=== PATIENT | female | born 1975 | race Two or more races ===

== ENCOUNTER 2019-09-02 00:22 | Emergency (ER) | payer MEDICAID ==
[~2019-09-02] VITALS: Ht 167.6 cm; Wt 65.8 kg
[2019-09-02] MEDS ORDERED: MORPHINE SULFATE 4 MG/ML SYR/VIAL IV ONE (00:45)
[2019-09-02] MEDS ORDERED: ONDANSETRON HCL 4 MG/2 ML VIAL IV ONE (00:45)
[2019-09-02] MEDS ORDERED: HYDROmorphone HCL 2 MG/ML VL IV ONE (01:30)
[2019-09-02] MEDS ORDERED: LORazepam 2MG/ML-1ML VIAL IV ONE (02:15)
[2019-09-02 04:15] VITALS: BP 95/64
== END 2019-09-02 05:22 | disposition home or self-care (01) ==
LOC: EDBD 00:22 → ER 00:27
DX: R51 Headache (principal); F41.9 Anxiety disorder, unspecified; R11.0 Nausea; H53.8 Other visual disturbances
CPT/HCPCS: 70450; 96374; 96375; 99284; J1170; J2060; J2270; J2405

== ENCOUNTER 2021-07-04 06:26 | Emergency (ER) | payer MEDICAID ==
[~2021-07-04] VITALS: Ht 170.2 cm; Wt 79.4 kg
[2021-07-04 08:13] VITALS: BP 148/88
[2021-07-04] MEDS ORDERED: LIDO2SOL23 PO (08:20)
[2021-07-04] MEDS ORDERED: AZIT500T PO (08:20)
== END 2021-07-04 08:26 | disposition home or self-care (01) ==
LOC: ER 06:26
DX: J02.9 Acute pharyngitis, unspecified (principal); Z20.822 Contact with and (suspected) exposure to COVID-19
CPT/HCPCS: 36415; 71045; 87426

== ENCOUNTER 2023-05-16 04:52 | Emergency (ER) | payer MEDICAID ==
[~2023-05-16] VITALS: Ht 170.2 cm; Wt 78.2 kg
[~2023-05-16 04:52] MED LIST: AZIT500T PO; LIDO2SOL26 PO
[2023-05-16 05:04] VITALS: BP 148/86; PULSE 114; RESP 16; O2SAT 95
== END 2023-05-16 05:35 | disposition left against medical advice (07) ==
LOC: ER 04:52
DX: M79.601 Pain in right arm (principal); R20.2 Paresthesia of skin; Z53.21 Procedure and treatment not carried out due to patient leaving prior to being seen by health care provider

== ENCOUNTER 2024-01-11 18:06 | Emergency (ER) | payer MEDICAID ==
[~2024-01-11] VITALS: Ht 170.2 cm; Wt 79.5 kg
[2024-01-11 18:30] VITALS: BP 154/110; PULSE 123; RESP 18; O2SAT 97
[2024-01-11] MEDS ORDERED: SODIUM CHLORIDE 0.9% 1,000 ML IV ONE (19:00)
== END 2024-01-11 20:18 | disposition left against medical advice (07) ==
LOC: ER 18:06 → EDBD 18:06 → ER 20:08
DX: F10.129 Alcohol abuse with intoxication, unspecified (principal); I10 Essential (primary) hypertension; Z79.899 Other long term (current) drug therapy; Y90.0 Blood alcohol level of less than 20 mg/100 ml
CPT/HCPCS: 36415; 80320

== ENCOUNTER 2024-05-24 14:11 | Emergency (ER) | payer MEDICAID ==
[~2024-05-24] VITALS: Ht 170.2 cm; Wt 79.9 kg
--- NOTE | 2024-05-24 14:37 | ED.PDOC ---
Back pain HPI HPI Comments 49 y/o female pt presents to the clinic for posterior head pain. Pt reports that she woke up yesterday with pain. Pt states that the pain started with left lateral neck pain. Pt reports that he pain is now on both sides of the neck and radiates up the back of the head. Pt reports that pain has increased. Pt reports that she has increased pain when she rotates the head to the left and with extension and flexion of the neck. Pt denies any alleviating factors. Pt denies any injury or trauma. Pt denies any back pain. Pt denies any new numbness or tingling. Pt has a history of carpal tunnel. Pt denies any chest pain. Pt reports that she took aleve around 12pm today but denies any decrease in pain. Pt reports that she also tried heat which has not relieved the pain. Pt denies any medical history. Chief Complaint: Neck Pain Time Seen by MD: 14:36 Primary Care Provider: NONE Allergies: Coded Allergies: NO KNOWN ALLERGIES (Unverified , 09/02/19) Home Meds Active Scripts Cyclobenzaprine Hcl (Cyclobenzaprine Hcl) 10 Mg Tab, 10 MG PO Q8HPRN PRN for 10 Days, #30 TAB 0 Refills Prov:GENARO ASTUDILLO [facility] 05/24/24 Ibuprofen Micronized (Ibuprofen) 600 Mg Tab, 600 MG PO Q8HP PRN for 10 Days, #30 TAB 0 Refills Prov:GENARO ASTUDILLO [facility] 05/24/24 Prednisone (Prednisone) 20 Mg Tab, 50 MG PO DAILY for 5 Days, #5 TAB 0 Refills Prov:GENARO ASTUDILLO [facility] 05/24/24 Lidocaine HCl (Mouth-Throat) (Lidocaine HCl Viscous) 2 % Elena, 2 % PO TID for 7 Days, #100 ML 0 Refills Prov:TONY LEGGETT 07/04/21 Azithromycin (Zithromax) 500 Mg Tab, 500 MG PO DAILY for 5 Days, #5 TAB 0 Refills Prov:TONY LEGGETT 07/04/21 Information Source: Patient Mode of Arrival: Wheelchair Past Medical History PAST MEDICAL HISTORY: Denies Surgical History: Denies all surgeries COIL WINDER REPAIR History: Denies all COIL WINDER REPAIR Hx Family History Family History: Reviewed,noncontributory to illness, Family hx of liver eris Social History Smoker: Non-Smoker Alcohol: Denies ETOH Use Drugs: Denies Drug Use Lives In: Home Neurological: reports: headache (posterior headache ) Musculoskeletal: reports: neck pain Physical Exam General Appearance: Mild Distress HEENT: PERRL/EOMI, TMs Normal Neck: Limited Range of Motion, Tender Lateral Respiratory: Chest Non-Tender, Lungs Clear, No Accessory Muscle Use, No Respiratory Distress, Normal Breath Sounds Cardiovascular: No Edema, No JVD, No Murmur, No Gallop, Normal Peripheral Pulses, Regular Rate/Rhythm Breast Exam: Deferred Gastrointestinal: No Organomegaly, Non Tender, No Pulsatile Mass, Normal Bowel Sounds, Soft Genitalia: Deferred Pelvic: Deferred Rectal: Deferred Extremities: No calf tenderness, Normal capillary refill, Normal inspection, Normal range of motion, Non-tender, No pedal edema Neurologic: Alert, Headache (worst headache of life, posterior headache, scalp tenderness), No Motor Deficits, Normal Affect, Normal Mood, No Sensory Deficits Cerebellar Function: Normal Reflexes: Normal Skin: Dry, Normal Color, Warm Lymphatic: No Adenopathy Was a procedure done? Was a procedure done?: No Back Pain Differential Dx Differential Diagnosis: Musculoskeletal Pain Other Differential Diagnosis cerebral hemorrhage X-Ray, Labs, Meds, VS Vital Signs Date Time Temp Pulse Resp B/P (MAP) Pulse Ox O2 Delivery O2 Flow Rate FiO2 05/24/24 15:14 95 16 98 Room Air 05/24/24 15:14 98.5 95 16 149/90 (109) 98 98.5 05/24/24 14:31 98.5 95 16 149/90 (109) 98 Current Medications Medications (Trade) Dose Ordered Sig/Alon Route Start Time Stop Time Status Last Admin Ketorolac Tromethamine (Toradol Injection) 60 mg ONCE ONCE IM 05/24/24 15:45 05/24/24 15:46 DC 05/24/24 15:50 Methylprednisolone Sodium Succinate (Solu Medrol) 125 mg ONCE ONCE IM 05/24/24 16:45 05/24/24 16:47 DC 05/24/24 16:53 PATIENT: CAITLYN AGUIRREACCT: [id number]: [id number] : 1975 LOC: ER ROOM / BED: / AGE / SEX: 49 / F ADM STATUS: REG ER SERVICE 1530 ORDERING PHYSICIAN: GENARO ASTUDILLO PROCEDURE(s): HWOCT - HEAD WITHOUT CONTRAST REASON: Headache, r/o bleed ORDER NUMBER(s): [id number], ACCESSION NUMBER(s): [id number] Exam: CT HEAD WITHOUT CONTRAST History: Headache, r/o bleed Technique: [address] images through the posterior fossa and the supratentorial compartment were acquired without contrast and imaged using soft tissue and bone algorithms. RADIATION DOSE: DLP 972.39 mGy.cm; CTDI vol 53.83 mGy. Comparison: HEAD WITHOUT CONTRAST on DOS: 09/01/19 Findings: There is no evidence of an intracranial hemorrhage, acute large vessel infarct, mass effect, or midline shift. The calvarium, orbits, paranasal sinuses, sella, middle ears, and mastoids are unremarkable. The superficial soft tissues are within normal limits. Impression: 1. No acute intracranial abnormality. ATED BY: INES MERCHANT DO DICTATED DATE/TIME: 05/24/241634 SIGNED BY: INES MERCHANT DO SIGNED DATE/TIME: 05/24/241634 X-Ray, Labs, Meds, VS Comment On re-evaluation patient has symptomatic improvement. Patient is stable for discharge at this time. All test results and diagnostic imaging have been interpreted. All diagnostic findings, discharge care, and education instruction provided to the patient. Follow-up with PCP in 2-3 days Patient verbalized understanding, discharge instructions and agrees to treatment plan Vital signs are stable Patient is ambulatory Patient advised of which symptoms necessitate a return visit to the emergency room. Patient to return emergency room for any new worsening symptoms. Patient is aware that the purpose of this visit is for an acute medical emergency requiring emergent stabilization. Chronic conditions, including malignancies have not been ruled out. Patient is instructed to follow up with PCP as directed for continued care and workup. If unable to arrange follow up, patient is to return to the emergency room for reassessment. Patient was given verbal and written discharge instructions and acknowledges understanding Time of 1ST Reevaluation: 16:23 Reevaluation 1ST: Improved Patient Education/Counseling: Diagnosis, Treatment, Prognosis Family Education/Counseling: Diagnosis, Treatment, Prognosis Departure 1 Departure Time of Disposition: 16:56 Impression: Primary Impression: Headache Qualified Codes: G44.201 - Tension-type headache, unspecified, intractable Additional Impression: Neck pain without injury Disposition: HOME / SELF CARE / HOMELESS Condition: Fair e-Prescriptions Cyclobenzaprine Hcl (Cyclobenzaprine Hcl) 10 Mg Tab 10 MG PO Q8HPRN PRN for 10 Days, #30 TAB 0 Refills Prov: SO ASTUDILLOANNE [facility] 05/24/24 Ibuprofen Micronized (Ibuprofen) 600 Mg Tab 600 MG PO Q8HP PRN for 10 Days, #30 TAB 0 Refills Prov: NAZARIOSO RiggsGENARO [facility] 05/24/24 Prednisone (Prednisone) 20 Mg Tab 50 MG PO DAILY for 5 Days, #5 TAB 0 Refills Prov: NAZARIOSO RiggsGENARO [facility] 05/24/24 Discharged With: Self, Relative (daughter) Critical Care Note Critical Care Time?: No Stability Stability form required: No Heart Score Heart Score: Heart Score Response (Comments) Value History N/A 0 EKG N/A 0 Age N/A 0 Risk Factors N/A 0 Troponin N/A 0 Total 0 NELLI RAMOS COLD ROLL CATCHER May 24, 2024 14:37 GENARO ASTUDILLO [facility] May 24, 2024 15:28
[2024-05-24 15:14] VITALS: BP 149/90; PULSE 95; RESP 16; TEMP 98.5; O2SAT 98
[2024-05-24] MEDS: KETOROLAC TROMETH 60MG/2ML VIAL IM ONE (15:50)
--- NOTE | 2024-05-24 16:37 | DVH ---
Exam: CT HEAD WITHOUT CONTRAST History: Headache, r/o bleed Technique: [address] images through the posterior fossa and the supratentorial compart ment were acquired without contrast and imaged using soft tissue and bone algorithms. RADIATION DOSE: DLP 972.39 mGy.cm; CTDI vol 53.83 mGy. Comparison: HEAD WITHOUT CONTRAST on DOS: 09/01/19 Findings: There is no evidence of an intracranial hemorrhage, acute large vessel infarct, mass effect, or midli ne shift. The calvarium, orbits, paranasal sinuses, sella, middle ears, and mastoids are unremarkable. The superficial soft tissues are within normal limits. Impression: 1. No acute intracranial abnormality.
[2024-05-24] MEDS: methylPREDNISolone SOD SUCC 125 MG/2 ML VL IM ONE (16:53)
[2024-05-24] MEDS ORDERED: IBUP1TAB5 PO (16:56)
[2024-05-24] MEDS ORDERED: CYCL-839 PO (16:56)
[2024-05-24] MEDS ORDERED: PRED20TA2 PO (16:56)
== END 2024-05-24 17:00 | disposition home or self-care (01) ==
LOC: ER 14:24
DX: R51.9 Headache, unspecified (principal); M54.2 Cervicalgia; Z79.899 Other long term (current) drug therapy
CPT/HCPCS: 70450; 96372; 99285; J1885; J2919

== ENCOUNTER 2025-03-01 09:12 | Emergency (ER) | payer MEDICAID, OTHER ==
[~2025-03-01] VITALS: Ht 170.2 cm; Wt 77.4 kg
[~2025-03-01 09:12] MED LIST changes: +CYCL-839 PO; +IBUP1TAB5 PO; +PRED20TA2 PO
[2025-03-01 09:27] VITALS: BP 196/80; PULSE 112; RESP 22; TEMP 97.9; O2SAT 100
[2025-03-01] MEDS ORDERED: SODIUM CHLORIDE 0.9% 1,000 ML IV ONE (09:30)
[2025-03-01] MEDS ORDERED: KETOROLAC TROMETH 30 MG/ML 1ML VIAL IV ONE (09:30)
[2025-03-01] MEDS ORDERED: METOCLOPRAMIDE HCL 5MG/ml INJ 2ml VIAL IV ONE (09:30)
[2025-03-01] MEDS ORDERED: ACETAMINOPHEN 325 MG TAB PO ONE (09:30)
--- NOTE | 2025-03-01 09:31 | ED.PDOC ---
HPI (NEURO) HPI Comments 49 year old female presents to the ED via EMS with a chief complaint of headache onset today. Per EMS, patient woke up this morning experiencing sharp RT sided headache, rates pain 10/10. Upon EMS arrival, patient's BP was 196 systolic. Patient states she was told by PCP she is not able to take pain medication and HTN medication combined. PMHx HTN, anxiety. Denies chest pain, shortness of breath, nausea, vomiting, diarrhea, fever, chills. No other symptoms or modifying factors present at this time. Time Seen by MD: 09:10 Primary Care Provider: NONE Reviewed Notes: Medications, Allergies Information Source: Patient, Emergency Med Personnel Mode of Arrival: EMS Severity: Moderate Headache Severity: Moderate Timing: Hours Duration: Since onset Prehospital treatment: None Headache Quality: Sharp Associated Signs and Symptoms: Headache Past Medical History PAST MEDICAL HISTORY: Anxiety, HTN Surgical History: Denies all surgeries PUMP REBUILDER History: Denies all PUMP REBUILDER Hx Family History Family History: Reviewed,noncontributory to illness, Family hx of liver eris Social History Smoker: Non-Smoker Alcohol: Denies ETOH Use Drugs: Denies Drug Use Lives In: Home Constitutional: denies: chills, diaphoresis, fatigue, fever, malaise, sweats, weakness, others EENTM: denies: blurred vision, double vision, ear bleeding, ear discharge, ear drainage, ear pain, ear ringing, eye pain, eye redness, hearing loss, mouth pain, mouth swelling, nasal discharge, nose bleeding, nose congestion, nose pain, photophobia, tearing, throat pain, throat swelling, voice changes, others Respiratory: denies: cough, hemoptysis, orthopnea, SOB at rest, shortness of breath, SOB with excertion, stridor, wheezing, others Cardiovascular: denies: chest pain, dizzy spells, diaphoresis, Dyspnea on exertion, edema, irregular heart beat, left arm pain, lightheadedness, palpitations, PND, syncope, others Gastrointestinal: denies: abdomen distended, abdominal pain, blood streaked bowels, constipated, diarrhea, dysphagia, difficulty swallowing, hematemesis, melena, nausea, poor appetite, poor fluid intake, rectal bleeding, rectal pain, vomiting, others Genitourinary: denies: abnormal vagina bleeding, burning, dyspareunia, dysuria, flank pain, frequency, hematuria, incontinence, pain, , vagina discharge, urgency, others Neurological: reports: headache; denies: dizziness, fainting, left sided numbness, left sided weakness, numbness, paresthesia, pre-existing deficit, right sided numbness, right sided weakness, seizure, speech problems, tingling, tremors, weakness, others Musculoskeletal: denies: back pain, gout, joint pain, joint swelling, muscle pain, muscle stiffness, neck pain, others Integumetry: denies: bruises, change in color, change in hair/nails, dryness, laceration, lesions, lumps, rash, wounds, others Allergic/Immunocompromised: denies: Difficulty Healing, Frequent Infections, Hives, Itching, others Hematologic/Lymphatic: denies: anemia, blood clots, easy bleeding, easy bruising, swollen glands, others Endocrine: denies: excessive hunger, excessive sweating, excessive thirst, excessive urination, flushing, intolerance to cold, intolerance to heat, unexplained weight gain, unexplained weight loss, others Psychiatric: denies: anxiety, bipolar disorder, depression, hopeless, panic disorder, schizophrenia, sleepless, suicidal, others All Other Systems: Reviewed and Negative Physical Exam General Appearance: Normal HEENT: Normal ENT Inspection, Pharynx Normal, TMs Normal Neck: Full Range of Motion, Non-Tender, Normal, Normal Inspection Respiratory: Chest Non-Tender, Lungs Clear, No Accessory Muscle Use, No Respiratory Distress, Normal Breath Sounds Cardiovascular: No Edema, No JVD, No Murmur, No Gallop, Normal Peripheral Pulses, Regular Rate/Rhythm Breast Exam: Deferred Gastrointestinal: No Organomegaly, Non Tender, No Pulsatile Mass, Normal Bowel Sounds, Soft Genitalia: Deferred Pelvic: Deferred Rectal: Deferred Extremities: No calf tenderness, Normal capillary refill, Normal inspection, Normal range of motion, Non-tender, No pedal edema Musculoskeletal : Apperance: Normal Neurologic: Alert, marketing director II-XII nml as Tested, No Motor Deficits, Normal Affect, Normal Mood, No Sensory Deficits Cerebellar Function: Normal Reflexes: Normal Skin: Dry, Normal Color, Warm Lymphatic: No Adenopathy Was a procedure done? Was a procedure done?: No Differential Diagnosis (SZ) Headache: Cluster, Migraine Time of 1ST Reevaluation: 09:40 Reevaluation 1ST: Unchanged Patient Education/Counseling: Diagnosis, Treatment, Prognosis Family Education/Counseling: No Family Present Critical Care Note Critical Care Time?: No Stability Stability form required: No I personally scribed for FLOWER VEGA MD ([email or web address]) on 03/01/25 at 09:30. Electronically submitted by Merlene Arrington ([email or web address]). FLOWER VEGA MD Mar 01, 2025 09:30
== END 2025-03-01 11:52 | disposition left against medical advice (07) ==
LOC: ER 09:12 → EDBD 09:12 → ER 11:52
DX: R51.9 Headache, unspecified (principal); I10 Essential (primary) hypertension; F41.9 Anxiety disorder, unspecified